=== PATIENT | male | born 1965 | race Caucasian/White ===

== ENCOUNTER 2019-09-13 07:19 | Day surgery (SDC) | payer BC ==
[2019-09-12 13:10] LABS: BASOPHILS % (AUTO) 0.6 % (0.0-5.0); EOSINOPHILS % (AUTO) 1.9 % (0.0-8.0); HEMATOCRIT 41.7 % (42-54); MEAN CORPUSCULAR HEMOGLOBIN 30.2 pg (27.0-33.0); MEAN CORPUSCULAR HGB CONC 32.9 g/dL (32.0-36.0); MEAN CORPUSCULAR VOLUME 91.9 fL (79-99); NEUTROPHILS % (AUTO) 53.6 % (40.0-77.0); PLATELET COUNT (AUTO) 234 K/uL (130-400); RED BLOOD CELL COUNT(AUTO) 4.54 MIL/uL (4.50-6.20); RED CELL DISTRIBUTION WIDTH 13.6 % (11.0-15.5)
[2019-09-12 13:22] LABS: POTASSIUM 4.7 mmol/L (3.5-5.1)
[2019-09-12 15:10] VITALS: BP 154/76
[~2019-09-13] VITALS: Ht 185.4 cm; Wt 126.8 kg
[2019-09-13] VITALS (17 sets, daily range): BP systolic 102–164; BP diastolic 63–90
[~2019-09-13 07:19] MED LIST: BACTRIM PO; BUSP10TA3 PO; CEFAZOLIN SODIUM 1 GM VIAL IVP ONE; LACTATED RINGERS 1000ML 1,000 ML IV ONE; LACTATED RINGERS 1000ML 1,000 ML IV SCH; LISI10TA7 PO; MONT10TA26 PO; TIZA4TAB5 PO
[2019-09-13] MEDS ORDERED: PROPOFOL 10 MG/ML 20ML VIAL IV ONE (07:38)
[2019-09-13] MEDS ORDERED: MIDAZOLAM HCL 1 MG/ML 2ML VIAL ONE ×2 (07:38→09:28)
[2019-09-13] MEDS ORDERED: ONDANSETRON HCL 4 MG/2 ML VIAL ONE (07:38)
[2019-09-13] MEDS ORDERED: FENTANYL CITRATE PF 50 MCG/1 ML 2ML VIAL ONE (07:38)
[2019-09-13] MEDS ORDERED: LIDOCAINE PF 2% 5ML ABBOJECT ONE (07:38)
[2019-09-13] MEDS ORDERED: CEFAZOLIN SODIUM 1 GM VIAL ONE ×2 (07:49→10:54)
[2019-09-13] MEDS ORDERED: ROPIVACAINE 0.5% 5MG/ML 30ML IJ ONE (07:53)
[2019-09-13] MEDS ORDERED: KETOROLAC TROMETHAMINE 30MG/ML ONE (09:32)
[2019-09-13] MEDS ORDERED: DEXAMETHASONE SOD PHOSPHATE 10MG/ML 1ML VIAL ONE (09:32)
[2019-09-13] MEDS ORDERED: LIDOCAINE HCL 2% 20ML ONE (09:50)
--- NOTE | 2019-09-13 12:30 | NUR ---
PT DISCHARGED HOME. LEFT ARM SLING IN PLACE. SULEMAN WRAP DRESSING TO LEFT ARM/ELBOW INTACT. HEMOVAC HAD MINIMAL TO NO DRAINAGE. RECHARGED HEMOVAC BEFORE LEAVING. IV CATH REMOVED INTACT. DISCHARGE INSTRUCTION GIVEN TO PT AND HIS FRIEND BETTY HAN. PT WAS NOT PLEASED THAT DR ZAMBRANO HAD NO RX FOR PAIN MEDS. I CALLED DR ZAMBRANO OFFICE AND SPOKE TO HIS STAFF ABOUT PT CONCERNS. INFORMED ME THAT SHE WOULD RELAY MESSAGE TO OFFICE P.A. ONCE THEY WERE BACK FROM LUNCH. OFFICE GIVEN PHARMACY PREFERENCE INFO.
== END 2019-09-13 12:30 | disposition home or self-care (01) ==
LOC: DAH 07:19
PROVIDERS: ATTEND Orthopaedic Surgery
DX: M70.22 Olecranon bursitis, left elbow (principal); I10 Essential (primary) hypertension; M19.90 Unspecified osteoarthritis, unspecified site; E66.01 Morbid (severe) obesity due to excess calories; K21.9 Gastro-esophageal reflux disease without esophagitis; F41.1 Generalized anxiety disorder; E78.2 Mixed hyperlipidemia; Z98.890 Other specified postprocedural states; Z90.89 Acquired absence of other organs; Z87.891 Personal history of nicotine dependence; Z80.0 Family history of malignant neoplasm of digestive organs; Z82.49 Family history of ischemic heart disease and other diseases of the circulatory system; Z11.59 Encounter for screening for other viral diseases; Z82.0 Family history of epilepsy and other diseases of the nervous system; Z72.89 Other problems related to lifestyle; Z85.47 Personal history of malignant neoplasm of testis; Z90.79 Acquired absence of other genital organ(s); Z68.36 Body mass index [BMI] 36.0-36.9, adult
CPT/HCPCS: 24105; 36415; 64415; 76942; 80048; 85025; 87070; 87076; 87205; A4215; A4221; A4222; A4223; A4565; A4606; A4649 ×2; A4663; A6223; A6446; J0690 ×2; J1100; J1885; J2001; J2250 ×2; J2405; J2704; J2795; J3010; J3490; J7120; U0003

== ENCOUNTER → 2019-09-19 | Outpatient (CLI) | payer BC ==
[~2019-09-19] MED LIST changes: -CEFAZOLIN SODIUM 1 GM VIAL IVP ONE; -LACTATED RINGERS 1000ML 1,000 ML IV ONE; -LACTATED RINGERS 1000ML 1,000 ML IV SCH
== END | disposition home or self-care (01) ==
LOC: RAH 12:18
PROVIDERS: ATTEND Pediatrics Adolescent Medicine
DX: M70.22 Olecranon bursitis, left elbow (principal)
CPT/HCPCS: 93971

== ENCOUNTER → 2019-11-07 | Outpatient (CLI) | payer BC | END | disposition home or self-care (01) | LOC: RAH 12:56 | PROVIDERS: ATTEND Pediatrics Adolescent Medicine | DX: R05 Cough (principal); I25.10 Atherosclerotic heart disease of native coronary artery without angina pectoris; K76.0 Fatty (change of) liver, not elsewhere classified; Z87.891 Personal history of nicotine dependence | CPT/HCPCS: 71250 ==

== ENCOUNTER → 2019-12-26 | Outpatient (CLI) | payer OTHER | END | disposition home or self-care (01) | LOC: RAH 14:46 | PROVIDERS: ATTEND Internal Medicine Cardiovascular Disease | DX: Z13.6 Encounter for screening for cardiovascular disorders (principal) | CPT/HCPCS: 75571 ==

== ENCOUNTER → 2020-08-10 | Outpatient (CLI) | payer BC ==
[~2020-08-10] MED LIST changes: +LISI10TA24 PO; -LISI10TA7 PO; -MONT10TA26 PO; +MONT10TA32 PO
== END | disposition home or self-care (01) ==
LOC: RAH 08:01
PROVIDERS: ATTEND Family Medicine Sports Medicine
DX: M50.122 Cervical disc disorder at C5-C6 level with radiculopathy (principal); M62.838 Other muscle spasm; M48.02 Spinal stenosis, cervical region
CPT/HCPCS: 72141